=== PATIENT | female | born 1990 | race Caucasian/White ===

== ENCOUNTER → 2020-03-10 | Outpatient (CLI) | payer BC ==
--- NOTE | 2020-03-10 10:09 | CT ---
EXAMINATION TYPE: CT facial bones wo/w con DATE OF EXAM: 03/10/2020 COMPARISON: None HISTORY: Right sided facial swelling with recent drainage CT DLP: 1411.8 mGycm Automated exposure control for dose reduction was used. CONTRAST: CT scan of the facial bones is performed without and with IV Contrast, patient injected with 100 mL o f Isovue 300. TECHNIQUE: CT scan of the sinuses is performed without contrast, axial images are obtained, coronal r eformatted images are also reviewed. FINDINGS: There is extensive postsurgical change involving the maxillary sinuses. There is a bony def ect along the anterior maxillary antrum with a large mucous retention cyst or polyp extending through out the mid and lower portion of the maxillary sinus into the anterior margin of the soft tissues. There is a slight nasal septal deviation. Oropharynx and nasopharynx symmetric. Ostiomeatal complex r emains patent bilaterally. There is minimal mucosal thickening involving the ethmoid air cells. Frontal sinus has a normal appea ayanna. Sphenoid sinus demonstrates no significant mucosal thickening. There are no air-fluid levels. Partial inclusion of mastoid air cells demonstrates a normal appearance. IMPRESSION: 1.. There is extensive postsurgical changes involving the maxillary sinuses bilaterally with apparent absence of the lateral anterior wall of the right maxillary sinus. There is soft tissue edema and a small amount of air in the subcutaneous tissues which may be originating from the sinus. A large mucu s retention cyst or polyp is seen at this level within the mid and lower portion of the right maxilla ry sinus. Infectious etiology not excluded correlate clinically.
== END | disposition home or self-care (01) ==
LOC: RADCTMAIN 09:24
PROVIDERS: ATTEND Dentist Oral and Maxillofacial Surgery
DX: M79.89 Other specified soft tissue disorders (principal); Z98.890 Other specified postprocedural states
CPT/HCPCS: 70488; Q9967

== ENCOUNTER → 2020-03-27 | Outpatient (CLI) | payer BC | END | disposition home or self-care (01) | LOC: LABWHC1 14:49 | PROVIDERS: ATTEND Dentist Oral and Maxillofacial Surgery | DX: Z11.59 Encounter for screening for other viral diseases (principal) ==

== ENCOUNTER 2020-03-29 12:52 | Day surgery (SDC) | payer BC ==
[2020-03-28 14:10] VITALS: BMI 34.0
[~2020-03-29 12:52] MED LIST: DEXAMETHASONE SOD PHOSPHATE 10 MG/ML 1 ML VIAL IV ONE; HYDROmorphone 0.5 MG/0.5 ML SYRINGE IVP PRN; LACTATED RINGERS 1,000 ML IV SCH; LIDOCAINE 1% (10MG/ML) FOR IV START INTRADERMA PRN; MIDAZOLAM 2 MG/2 ML VIAL IV PRN; metroNIDAZOLE-NS PMX 500 MG in SALINE 1 100ML.BAG IVPB ONE
[2020-03-29] MEDS: ONDANSETRON 4 MG/2 ML VIAL IVP ONE ×2 (13:27→16:10)
[2020-03-29] MEDS ORDERED: MIDAZOLAM 2 MG/2 ML VIAL ONE (13:58)
[2020-03-29] MEDS ORDERED: PROPOFOL 10 MG/ML 20 ML VIAL IV ONE (13:58)
[2020-03-29] MEDS ORDERED: KETOROLAC 30 MG/ML 1 ML VIAL ONE (13:58)
[2020-03-29] MEDS ORDERED: fentaNYL (PF) 50 MCG/ML 2 ML AMP ONE (13:58)
[2020-03-29] MEDS ORDERED: SUCCINYLCHOLINE CHLORIDE 100 MG/5 ML SYR IV ONE (13:58)
[2020-03-29] MEDS ORDERED: LIDOCAINE 1% INJ 10MG/ML (20 ML MDV) ONE (13:58)
[2020-03-29] MEDS ORDERED: LIDOCAINE 1%-EPI 1:100,000 20 ML VIAL SUBMUCOSAL ONE (14:25)
[2020-03-29 15:47] VITALS: TEMP 98.3
--- NOTE | 2020-03-29 15:56 | P.OP ---
Date of Procedure: 03/29/20 Preoperative Diagnosis: Cyst Right maxillary sinus vs Infected Hardware Postoperative Diagnosis: Cyst Right Maxillary sinus Procedure(s) Performed: Removal of cyst right maxillary sinus with merino jaclyn approach Removal of hardware right maxillia Implants: None Anesthesia: TYRONA Surgeon: Kingston Hatfield Estimated Blood Loss (ml): 10 IV fluids (ml): 900 Urine output (ml): 0 Pathology: other (Cyst lining combined with apparent granulation tissue combined with normal sinus mucosa) Condition: stable Disposition: PACU Indications for Procedure: Patient presented to my office after seeing her primary care physician for facial swelling on 03/06/2020. Patient had reported that the swelling will be going on approximately 3 weeks with minimal pain. She been started on amoxicillin 1 week prior to that and the swelling did not go away. On the noticed a 2 cm swelling into the buccal vestibule. At that time aspirated approximately 10 mL of brown viscous fluid submitted for aerobic anaerobic cul tures which were negative for any organisms. Due to the coated 19 and surgery was delayed and the patient was reasonably stable throughout this time with some increased pain of the teeth in the area and are round of oral antibiotics. She did receive a computed tomography scan at that point which indicated a cystic growth in the right sinus that was involving the hardware on the right maxilla. Still unable to determine whether the infected plates with the cause of the cyst was of its own origin. The procedure was to remove the plates and remove/biopsy the cyst in an effort to make a diagnosis Operative Findings: None Description of Procedure: Consent reviewed with the patient and mom in the preoperative holding area including but limited to bleeding pain infection swelling nerve damage or numbness of the right face. Inability to remove the plates in their entirety creating an unstable environment for the occlusion on the right side. Mobility of the teeth. Increased sinus drainage. Bloody nose. Sinus infection. Patient understood these risks and agreed to proceed with the procedure. Patient was taken to the operating room #1 and prepped and draped in the usual fashion after undergoing oral intubation per anesthesia record without difficulty. 9 mL of 1% lidocaine was administered in the area and a vestibular incision approximately 2-4 mm above the nuchal gingival line in the area of the old incision was done. This was at the anterior aspect with the Bovie cautery and then utilizing the scalpel blade over the vestibular swelling in an effort to maintain the integrity of the cyst. Proximally half way through the dissection the cyst was ruptured again brown viscous fluid was expressed. The remaining dissection was done with finger and gauze as well as blunt dissection the periosteal elevator and nasal [place] an effort to remove the cyst from the surrounding tissues. In the bony areas the cyst came out without much difficulty except around the teeth where it was adherent to the molar roots. There appeared to be 2-3 mm circular areas of granulation tissue on the #3 root as well as #4. The teeth were all stable and bone. Posterior portion of the dissection was taken to the healthy appearance of sinus mucosa. An effort was made to make taint the sinus mucosa near the nasal antrum. Otherwise the mucosa was submitted with the specimen. The plates were then addressed some bone had to be removed over the screws and the screws and plates were all removed with the Vito Jean-Paul plating. The maxilla was still stable as the buttresses were intact anterior maxillary wall was completely obliterated by the cyst. This area was rinsed and Vicryl layered closure in the deep with 3-0 chromic gut interrupted for the superficial. Patient was then awakened extubated taken to recovery room where she is in stable condition. Patient waits discharge home per anesthesia plan would be oral Keflex Motrin and Tylenol with codeine prescriptions on chart patient's to follow up with me in 1 week. Plan - Discharge Summary Discharge Rx Participant: Yes New Discharge Prescriptions: No Action Cetirizine HCl [Zyrtec] 10 mg PO DAILY Norgestimate-Ethinyl Estradiol [Sprintec 28 Day Tablet] 1 tab PO HS Melatonin 10 mg PO HS PRN PRN Reason: Insomnia L.acidoph,Paracasei, B.lactis [Probiotic] 1 each PO DAILY Discharge Medication List Cetirizine HCl [Zyrtec] 10 mg PO DAILY 03/28/20 [History] L.acidoph,Paracasei, B.lactis [Probiotic] 1 each PO DAILY 03/28/20 [History] Melatonin 10 mg PO HS PRN 03/28/20 [History] Norgestimate-Ethinyl Estradiol [Sprintec 28 Day Tablet] 1 tab PO HS 03/28/20 [History]
[2020-03-29 16:47] VITALS: RESP 18
[2020-03-29 16:57] VITALS: BP 133/83; PULSE 83
== END 2020-03-29 17:47 | disposition home or self-care (01) ==
LOC: OR 12:52
PROVIDERS: ATTEND Dentist Oral and Maxillofacial Surgery
DX: J34.1 Cyst and mucocele of nose and nasal sinus (principal); Z47.2 Encounter for removal of internal fixation device; Z79.3 Long term (current) use of hormonal contraceptives; Z98.890 Other specified postprocedural states; Z84.89 Family history of other specified conditions; Z82.49 Family history of ischemic heart disease and other diseases of the circulatory system
CPT/HCPCS: 31030; 20680; 81025; 88305; 88300; J2250; J1100; J0690; J2405; J2001; J3010; J1885; J0330; J2704